=== PATIENT | female | born 1985 | race Caucasian/White ===

== ENCOUNTER 2016-08-25 20:22 | Inpatient (IN) | payer OTHER ==
[2016-08-25 21:19] VITALS: BMI 24.7
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
[2016-08-25] MEDS ORDERED: P-EPHED 60MG/TRIPROLIDI 2.5MG TABLET PO PRN (21:54)
[2016-08-25] MEDS ORDERED: LOPERAMIDE HCL 2 MG CAPSULE PO PRN (21:54)
[2016-08-25] MEDS ORDERED: IBUPROFEN 400 MG TABLET (FP) PO PRN (21:54)
[2016-08-25] MEDS ORDERED: MAGNESIUM CITRATE 300 ML BOTTLE PO PRN (21:54)
[2016-08-25] MEDS ORDERED: NICOTINE POLACRILEX 2 MG GUM BC PRN (21:54)
[2016-08-25] MEDS ORDERED: MAG HYDROX/AL HYDROX/SIMETH 30 ML UNIT-DOSE CUP PO PRN (21:54)
[2016-08-25] MEDS ORDERED: chlordiazePOXIDE HCL 25 MG CAPSULE PO PRN (21:54)
[2016-08-25] MEDS ORDERED: MAGNESIUM HYDROX 2400MG/30ML ORAL SUSPENSION 30 ML CUP PO PRN (21:54)
[2016-08-25] MEDS ORDERED: guaiFENesin/D-METHORPHAN HB 10 ML UNIT-DOSE CUPS PO PRN (21:54)
[2016-08-25] MEDS ORDERED: hydrOXYzine PAMOATE 50 MG CAPSULE (FP) PO PRN (21:54)
[2016-08-25] MEDS ORDERED: MENTHOL/PHENOL 1 EACH UD MM PRN (21:54)
[2016-08-25] MEDS ORDERED: ACETAMINOPHEN 325 MG TABLET (FP) PO PRN (21:54)
[2016-08-25] MEDS ORDERED: ALBUTEROL SO4 6.7 GM HFA INHALER IH PRN (21:56)
[2016-08-25] MEDS: THIAMINE HCL 100 MG TABLET (FP) PO SCH (23:01)
[2016-08-25] MEDS: chlordiazePOXIDE HCL 25 MG CAPSULE PO SCH (23:01)
[2016-08-25 23:52] LABS: URINE APPEARANCE CLEAR; URINE BILIRUBIN NEGATIVE (NEGATIVE); URINE BLOOD NEGATIVE (NEGATIVE); URINE COLOR LTYELLOW; URINE GLUCOSE (UA) NEGATIVE (NEGATIVE); URINE KETONE 1+ (NEGATIVE); URINE LEUK ESTERASE NEGATIVE (NEGATIVE); URINE NITRITE NEGATIVE (NEGATIVE); URINE PROTEIN NEGATIVE (NEGATIVE); URINE UROBILINOGEN NEGATIVE E.U./dl (0.2-1.0)
[2016-08-26] MEDS: chlordiazePOXIDE HCL 25 MG CAPSULE PO SCH ×4 (05:05→22:07)
--- NOTE | 2016-08-26 09:58 | EKG ---
Test Reason : Blood Pressure : / mmHG Vent. Rate : 065 BPM Atrial Rate : 065 BPM P-R Int : 146 ms QRS Dur : 078 ms QT Int : 420 ms P-R-T Axes : 042 037 049 degrees QTc Int : 436 ms NORMAL SINUS RHYTHM WITH SINUS ARRHYTHMIA SEPTAL INFARCT , AGE UNDETERMINED NONSPECIFIC ST ABNORMALITY ABNORMAL ECG NO PREVIOUS ECGS AVAILABLE Confirmed by SURJIT DE LEON MD ([id number]) on 08/26/2016 9:57:54 AM Referred By: Confirmed By:SURJIT DE LEON MD
[2016-08-26] MEDS: PRENATAL VITAMINS W/ FOLIC ACID TABLET (FP) PO SCH (10:13)
[2016-08-26 10:17] LABS: MCH 30.3 pg (25.7-33.7); MCHC 33.9 g/dl (32.0-36.0); MEAN CELL VOLUME 89.3 fl (80-96); MEAN PLT VOLUME 7.9 fl (7.5-11.1); PLATELET COUNT 261 K/MM3 (134-434); RDW 14.2 % (11.6-15.6)
[2016-08-26 10:57] LABS: ALBUMIN 4.1 g/dl (3.4-5.0); ALK PHOS 72 U/L (45-117); ANION GAP 10 (8-16); BILIRUBIN,TOTAL 0.8 mg/dL (0.2-1.0); CALCIUM 9.1 mg/dL (8.5-10.1); CO2 30 mmol/L (21-32); CREATININE 0.6 mg/dL (0.55-1.02); GLUCOSE,RANDOM 76 mg/dL (74-106); SGOT/AST 31 U/L (15-37); SGPT/ALT 33 U/L (12-78); TOT PROT 6.9 g/dl (6.4-8.2)
--- NOTE | 2016-08-26 11:00 | PN ---
[facility] CIWA - CIWA Score Nausea/Vomitin-No Nausea/No Vomiting Muscle Tremors: 4-Moderate,w/Arms Extend Anxiety: 4-Mod. Anxious/Guarded Agitation: 3 Paroxysmal Sweats: 3 Orientation: 0-Oriented Tacttile Disturbances: 0-None Auditory Disturbances: 0-None Visual Disturbances: 0-None Headache: 0-None Present CIWA-Ar Total Score: 14 S Progress Note (SOAP) Subjective: Anxiety,tremors,sweating,interrupted sleep,restless. Objective: 08/26/16 10:57 Vital Signs - 8 hr 08/26/16 08/26/16 08/26/16 03:30 06:10 10:00 Temperature 98.1 F 97.3 F L Pulse Rate 58 L 76 Respiratory 18 16 18 Rate Blood Pressure 131/71 139/85 Laboratory Last Values WBC 7.0 K/mm3 (4.0-10.0) 08/26/16 08:00 RBC 4.56 M/mm3 (3.60-5.2) 08/26/16 08:00 Hgb 13.8 GM/dL (10.7-15.3) 08/26/16 08:00 Hct 40.7 % (32.4-45.2) 08/26/16 08:00 MCV 89.3 fl (80-96) 08/26/16 08:00 MCHC 33.9 g/dl (32.0-36.0) 08/26/16 08:00 RDW 14.2 % (11.6-15.6) 08/26/16 08:00 Plt Count 261 K/MM3 (134-434) 08/26/16 08:00 MPV 7.9 fl (7.5-11.1) 08/26/16 08:00 Sodium 140 mmol/L (136-145) 08/26/16 08:00 Potassium 4.2 mmol/L (3.5-5.1) 08/26/16 08:00 Chloride 100 mmol/L (98-107) 08/26/16 08:00 Urine Color Ltyellow 08/25/16 22:36 Urine Appearance Clear 08/25/16 22:36 Urine pH 6.0 (5.0-8.0) 08/25/16 22:36 Ur Specific [place] 1.015 (1.005-1.025) 08/25/16 22:36 Urine Protein Negative (NEGATIVE) 08/25/16 22:36 Urine Glucose (UA) Negative (NEGATIVE) 08/25/16 22:36 Urine Ketones 1+ (NEGATIVE) H 08/25/16 22:36 Urine Blood Negative (NEGATIVE) 08/25/16 22:36 Urine Nitrite Negative (NEGATIVE) 08/25/16 22:36 Urine Bilirubin Negative (NEGATIVE) 08/25/16 22:36 Urine Urobilinogen Negative E.U./dl (0.2-1.0) 08/25/16 22:36 Ur Leukocyte Esterase Negative (NEGATIVE) 08/25/16 22:36 labs noted Assessment: 08/26/16 10:58 withdrawal sx Plan: Continue detox
--- NOTE | 2016-08-26 14:31 | CONSULT ---
[facility] Psychiatric Consult - Data Date of interview: 08/26/16 Admission source: [facility] Identifying data: First admission to [facility] for this 31 y/o female seeking detox treatment for alcohol dependence.Patient is without children,domiciled and fully employed. Substance Abuse History: - Smoking Cessation. Smoking history: Never smoked. Initiated information on smoking cessation: No. - Substance & Tx. History. Hx Alcohol Use: Yes. Hx Substance Use: Yes. Substance Use Type: Alcohol. Hx Substance Use Treatment: No. - Substances Abused. LIQUOR. Route: Oral. Frequency: Daily. Amount used: 2 PINTS. Age of first use: 28. Date of Last Use: 08/25/16. Confirmed by patient. Medical History: Bronchial asthma. Psychiatric History: Patient reports that she used to see a psychiatrist to address depression.She stopped taking wellbutrin (three months ago) due to intolerable adverse effects.Ms Dinh declines to resume psychotropic medications.No longer in OPD care.Patient denies history of suicide attempts. Physical/Sexual Abuse/Trauma History: Patient denies. Additional Comment: Drug Screen is negative. Mental Status Exam - Mental Status Exam Alert and Oriented to: Time, Place, Person Cognitive Function: Good Patient Appearance: Well Groomed (tattoo of veras on left forearm) Mood: Hopeful, Euthymic Affect: Appropriate, Normal Range Patient Behavior: Fatigued, Cooperative Speech Pattern: Clear Voice Loudness: Normal Thought Process: Intact, Goal Oriented Thought Disorder: Not Present Hallucinations: Denies Suicidal Ideation: Denies Homicidal Ideation: Denies Insight/Judgement: Poor Appetite: Fair Muscle strength/Tone: Normal Gait/Station: Normal Psychiatric Findings - Problem List ([place] 1, 2,3) (1) Alcohol dependence with uncomplicated withdrawal Current Visit: Yes Status: Acute (2) Alcohol-induced mood disorder Current Visit: Yes Status: Acute (3) Asthma Current Visit: Yes Status: Acute Qualifiers: Asthma severity: mild intermittent Asthma complication type: uncomplicated Qualified Code(s): J45.20 - Mild intermittent asthma, uncomplicated - Initial Treatment Plan Initial Treatment Plan: Psychoeducation.Detoxification.Patient declines to resume antidepressant medications.Observation.
[2016-08-26] MEDS ORDERED: diphenhydrAMINE HCL 25 MG CAPSULE (FP) PO ONE (21:33)
[2016-08-26] MEDS: THIAMINE HCL 100 MG TABLET (FP) PO SCH (22:06)
[2016-08-26] MEDS: diphenhydrAMINE HCL 50 MG CAPSULE PO PRN (22:07)
[2016-08-27] MEDS: chlordiazePOXIDE HCL 25 MG CAPSULE PO SCH ×3 (05:36→17:41)
[2016-08-27] MEDS: PRENATAL VITAMINS W/ FOLIC ACID TABLET (FP) PO SCH (10:08)
--- NOTE | 2016-08-27 11:05 | PN ---
[facility] CIWA - CIWA Score Nausea/Vomitin-No Nausea/No Vomiting Muscle Tremors: 3 Anxiety: 4-Mod. Anxious/Guarded Agitation: 3 Paroxysmal Sweats: 3 Orientation: 0-Oriented Tacttile Disturbances: 0-None Auditory Disturbances: 0-None Visual Disturbances: 0-None Headache: 0-None Present CIWA-Ar Total Score: 13 S Progress Note (SOAP) Subjective: anxiety,tremors,sweating,interrupted sleep,restless. Objective: 08/27/16 11:03 Vital Signs - 8 hr 08/27/16 08/27/16 08/27/16 03:30 06:30 10:00 Temperature 97.0 F L 96.8 F L Pulse Rate 47 L 68 Respiratory 18 18 18 Rate Blood Pressure 127/66 130/85 Laboratory Last Values WBC 7.0 K/mm3 (4.0-10.0) 08/26/16 08:00 RBC 4.56 M/mm3 (3.60-5.2) 08/26/16 08:00 Hgb 13.8 GM/dL (10.7-15.3) 08/26/16 08:00 Hct 40.7 % (32.4-45.2) 08/26/16 08:00 MCV 89.3 fl (80-96) 08/26/16 08:00 MCHC 33.9 g/dl (32.0-36.0) 08/26/16 08:00 RDW 14.2 % (11.6-15.6) 08/26/16 08:00 Plt Count 261 K/MM3 (134-434) 08/26/16 08:00 MPV 7.9 fl (7.5-11.1) 08/26/16 08:00 Sodium 140 mmol/L (136-145) 08/26/16 08:00 Potassium 4.2 mmol/L (3.5-5.1) 08/26/16 08:00 Chloride 100 mmol/L (98-107) 08/26/16 08:00 Carbon Dioxide 30 mmol/L (21-32) 08/26/16 08:00 Anion Gap 10 (8-16) 08/26/16 08:00 BUN 10 mg/dL (7-18) 08/26/16 08:00 Creatinine 0.6 mg/dL (0.55-1.02) 08/26/16 08:00 Creat Clearance w eGFR > 60 (>60) 08/26/16 08:00 Random Glucose 76 mg/dL (74-106) 08/26/16 08:00 Calcium 9.1 mg/dL (8.5-10.1) 08/26/16 08:00 Total Bilirubin 0.8 mg/dL (0.2-1.0) 08/26/16 08:00 AST 31 U/L (15-37) 08/26/16 08:00 ALT 33 U/L (12-78) 08/26/16 08:00 Alkaline Phosphatase 72 U/L (45-117) 08/26/16 08:00 Total Protein 6.9 g/dl (6.4-8.2) 08/26/16 08:00 Albumin 4.1 g/dl (3.4-5.0) 08/26/16 08:00 Urine Color Ltyellow 08/25/16 22:36 Urine Appearance Clear 08/25/16 22:36 Urine pH 6.0 (5.0-8.0) 08/25/16 22:36 Ur Specific [place] 1.015 (1.005-1.025) 08/25/16 22:36 Urine Protein Negative (NEGATIVE) 08/25/16 22:36 Urine Glucose (UA) Negative (NEGATIVE) 08/25/16 22:36 Urine Ketones 1+ (NEGATIVE) H 08/25/16 22:36 Urine Blood Negative (NEGATIVE) 08/25/16 22:36 Urine Nitrite Negative (NEGATIVE) 08/25/16 22:36 Urine Bilirubin Negative (NEGATIVE) 08/25/16 22:36 Urine Urobilinogen Negative E.U./dl (0.2-1.0) 08/25/16 22:36 Ur Leukocyte Esterase Negative (NEGATIVE) 08/25/16 22:36 RPR Titer Nonreactive (NONREACTIVE) 08/26/16 08:00 labs noted Assessment: 08/27/16 11:04 Withdrawal sx Plan: Continue detox
[2016-08-27] MEDS: chlordiazePOXIDE 5 MG CAPSULE PO SCH (22:02)
[2016-08-27] MEDS: THIAMINE HCL 100 MG TABLET (FP) PO SCH (22:03)
[2016-08-27] MEDS: diphenhydrAMINE HCL 50 MG CAPSULE PO PRN (22:03)
[2016-08-28] MEDS: chlordiazePOXIDE 5 MG CAPSULE PO SCH ×3 (05:25→17:21)
--- NOTE | 2016-08-28 09:57 | PN ---
S Progress Note (SOAP) Subjective: ALERT,INTERRUPTED SLEEP,PAIN IN THE BODY Objective: 08/28/16 09:57 Vital Signs Temperature 97.3 F L 08/28/16 06:00 Pulse Rate 54 L 08/28/16 06:00 Respiratory Rate 18 08/28/16 06:00 Blood Pressure 111/63 08/28/16 06:00 O2 Sat by Pulse Oximetry (%) Assessment: 08/28/16 09:57 WITHDRAWAL SYMPTOM Plan: CONTINUE DETOX,DISCHARGE IN AM
[2016-08-28] MEDS: PRENATAL VITAMINS W/ FOLIC ACID TABLET (FP) PO SCH (10:34)
[2016-08-28] MEDS: chlordiazePOXIDE HCL 10 MG CAPSULE PO SCH (22:04)
[2016-08-28] MEDS: THIAMINE HCL 100 MG TABLET (FP) PO SCH (22:04)
[2016-08-28] MEDS: diphenhydrAMINE HCL 50 MG CAPSULE PO PRN (22:04)
[2016-08-29] MEDS: chlordiazePOXIDE HCL 10 MG CAPSULE PO SCH (05:20)
[2016-08-29 06:21] VITALS: BP 127/74; PULSE 64; TEMP 97.5
--- NOTE | 2016-08-29 06:40 | PN ---
S Progress Note (SOAP) Subjective: ALERT,NO COMPLAINT Objective: 08/29/16 06:39 Vital Signs Temperature 97.5 F L 08/29/16 06:20 Pulse Rate 64 08/29/16 06:20 Respiratory Rate 18 08/29/16 06:20 Blood Pressure 127/74 08/29/16 06:20 O2 Sat by Pulse Oximetry (%) Assessment: 08/29/16 06:39 DETOX COMPLETED,NO WITHDRAWAL SYMPTOM Plan: DISCHARGE TODAY,FOLLOW UP WITH AFTER CARE PROGRAM ARRANGEMENT
--- NOTE | 2016-08-29 06:43 | DS ---
[facility] Detox Discharge Summary Admission Date: 08/25/16 Discharge Date: 08/29/16 - History Present History: Alcohol Dependence Additional Comments: FOLLOW UP WITH AFTER CARE PROGRAM ARRANGEMENT Pertinent Past History: ASTHMA - Physical Exam Results Vital Signs: Vital Signs Temperature 97.5 F L 08/29/16 06:20 Pulse Rate 64 08/29/16 06:20 Respiratory Rate 18 08/29/16 06:20 Blood Pressure 127/74 08/29/16 06:20 O2 Sat by Pulse Oximetry (%) Pertinent Admission Physical Exam Findings: WITHDRAWAL SYMPTOM - Treatment Hospital Course: Detox Protocol Followed, Detoxed Safely, Responded well, Discharged Condition Good Patient has Accepted a Rehab Referral to: DECLINED - Medication Discharge Medications: Ambulatory Orders NK [No Known Home Medication] 08/25/16 - Diagnosis (1) Alcohol dependence with uncomplicated withdrawal Current Visit: Yes Status: Acute (2) Alcohol-induced mood disorder Current Visit: Yes Status: Acute (3) Asthma Current Visit: Yes Status: Acute Qualifiers: Asthma severity: mild intermittent Asthma complication type: uncomplicated Qualified Code(s): J45.20 - Mild intermittent asthma, uncomplicated - AMA Did Patient Leave Against Medical Advice: No
== END 2016-08-29 10:00 | disposition home or self-care (01) | DRG 775 ==
LOC: YASAS 20:22 → Y6N 22:30 → UNDODISIN 08-29 07:15
PROVIDERS: ADMIT Internal Medicine; ATTEND Internal Medicine
PROC: HZ2ZZZZ Detoxification Services for Substance Abuse Treatment (ICD-10-PCS; principal; 2016-08-25)
DX: F10.230 Alcohol dependence with withdrawal, uncomplicated (principal); F10.24 Alcohol dependence with alcohol-induced mood disorder; J45.20 Mild intermittent asthma, uncomplicated; K58.9 Irritable bowel syndrome, unspecified
CPT/HCPCS: 36415; 80053; 81003; 85027; 86593; 93005; 93010